=== PATIENT | female | born 1995 | race Caucasian/White ===

== ENCOUNTER 2017-07-31 15:29 | Emergency (ER) | payer OTHER, MEDICAID ==
[~2017-07-31] VITALS: Wt 61.6 kg
[2017-07-31] MEDS ORDERED: LIDOCAINE/MYLANTA 40 ML BTL PO STA (16:22)
[2017-07-31] MEDS ORDERED: SOD CHLORIDE 0.9% 1,000 ML IV STA (16:22)
[2017-07-31] MEDS ORDERED: FAMOTIDINE 20 MG INJ IV STA (16:22)
[2017-07-31] MEDS ORDERED: ONDANSETRON 4 MG INJ IV STA (16:22)
[2017-07-31 17:01] LABS: BASOPHIL # 0.1 10^3/ul (0.0-0.1); BASOPHILS % 0.8 % (0.0-2.0); EOSINOPHILS # 0.1 10^3/ul (0.0-0.5); EOSINOPHILS % 1.1 % (0.0-7.0); HEMATOCRIT 46.9 % (37.0-47.0); HEMOGLOBIN 15.2 g/dl (12.0-16.0); LYMPHOCYTES % 26.7 % (15.0-51.0); MEAN CORPUSCULAR HGB CONC 32.4 g/dl (32.0-37.0); MEAN CORPUSCULAR VOLUME 83.3 fl (82.0-101.0); MEAN PLATELET VOLUME 10.1 fl (7.4-10.4); MONOCYTE # 0.5 10^3/ul (0.3-0.9); MONOCYTES % 6.5 % (0.0-11.0); NEUTROPHIL # 4.8 10^3/ul (1.6-7.5); NEUTROPHILS % 64.6 % (39.0-77.0); PLATELET COUNT 256 10^3/UL (140-415); RED BLOOD COUNT 5.63 10^6/ul (4.20-5.40); RED CELL DISTRIBUTION WIDTH 12.9 % (11.5-14.5); WHITE BLOOD COUNT 7.4 10^3/ul (4.8-10.8)
--- NOTE | 2017-07-31 17:03 | ERD ---
ER Documentation Chief Complaint Chief Complaint abd pain, n/v, dizzy, swollen fingers HPI This is a 22-year-old female presenting to emergency department for epigastric abdominal pain, nausea, vomiting and dizziness 2 days. Patient states pain started yesterday and vomiting began earlier today. Patient had 2 episodes of emesis today. Patient states she saw traces of blood in emesis. Patient describes pain as constant and nonradiating. Patient did not take any medications for this. Patient denies fevers or chills. Patient's last menstrual period July 16, 2017. Patient's last bowel movement was 2 days ago patient states she feels constipated. ROS All systems reviewed and are negative except as per history of present illness. Medications Home Meds Active Scripts Polyethylene Glycol* (Miralax*) 17 Gm Powd.pack, 17 GM PO DAILY, #7 Prov:LILA LUA NP 07/31/17 Docusate Sodium* (Colace*) 100 Mg Capsule, 100 MG PO BID, #14 CAP Prov:LILA LUA NP 07/31/17 Ondansetron Hcl* (Zofran*) 4 Mg Tablet, 4 MG PO Q6H for NAUSEA AND/OR VOMITING, #10 TAB Prov:LILA LUA NP 07/31/17 Famotidine* (Pepcid*) 20 Mg Tablet, 20 MG PO BID for 4 Days, TAB Prov:LILA LUA NP 07/31/17 Allergies Allergies: Coded Allergies: No Known Allergy (Unverified , 07/31/17) PMhx/Soc Medical and Surgical Hx: pt denies Medical Hx, pt denies Surgical Hx Hx Alcohol Use: No Hx Substance Use: No Hx Tobacco Use: No Smoking Status: Never smoker Physical Exam Vitals Vital Signs Date Time Temp Pulse Resp B/P Pulse Ox O2 Delivery O2 Flow Rate FiO2 07/31/17 15:38 97.7 83 20 128/62 98 Physical Exam Const: No acute distress, alert Head: Atraumatic Eyes: Normal Conjunctiva ENT: Normal External Ears, Nose and Mouth. Neck: Full range of motion..~ No meningismus. Resp: Clear to auscultation bilaterally. No wheezing, rhonchi or crackles. Cardio: Regular rate and rhythm, no murmurs Abd: Soft, non tender, non distended. Normal bowel sounds. Negative Moser sign. No McBurney point tenderness. Skin: No petechiae or rashes Back: No midline or flank tenderness Ext: No cyanosis, or edema Neur: Awake and alert Psych: Normal Mood and Affect Result Diagram: 07/31/17 1643 07/31/17 1643 Results 24 hrs Laboratory Tests Test 07/31/17 16:43 White Blood Count 7.410^3/ul Red Blood Count 5.6310^6/ul Hemoglobin 15.2g/dl Hematocrit 46.9% Mean Corpuscular Volume 83.3fl Mean Corpuscular Hemoglobin 27.0pg Mean Corpuscular Hemoglobin Concent 32.4g/dl Red Cell Distribution Width 12.9% Platelet Count 61138^3/UL Mean Platelet Volume 10.1fl Neutrophils % 64.6% Lymphocytes % 26.7% Monocytes % 6.5% Eosinophils % 1.1% Basophils % 0.8% Nucleated Red Blood Cells % 0.0/100WBC Neutrophils # 4.810^3/ul Lymphocytes # 2.010^3/ul Monocytes # 0.510^3/ul Eosinophils # 0.110^3/ul Basophils # 0.110^3/ul Nucleated Red Blood Cells # 0.010^3/ul Urine Color YELLOW Urine Clarity TURBID Urine pH 8.0 Urine Specific [place] 1.023 Urine Ketones NEGATIVEmg/dL Urine Nitrite NEGATIVEmg/dL Urine Bilirubin NEGATIVEmg/dL Urine Urobilinogen 2+mg/dL Urine Leukocyte Esterase NEGATIVELeu/ul Urine Microscopic RBC 0/HPF Urine Microscopic WBC 5/HPF Urine Squamous Epithelial Cells FEW/HPF Urine Renal Epithelial Cells MODERATE/HPF Urine Bacteria FEW/HPF Urine Mucus FEW/HPF Urine Hemoglobin NEGATIVEmg/dL Urine Glucose NEGATIVEmg/dL Urine Total Protein NEGATIVEmg/dl Sodium Level 143mmol/L Potassium Level 4.2mmol/L Chloride Level 106mmol/L Carbon Dioxide Level 26mmol/L Anion Gap 15 Blood Urea Nitrogen 10mg/dl Creatinine 0.71mg/dl Glucose Level 85mg/dl Calcium Level 10.1mg/dl Total Bilirubin 1.1mg/dl Direct Bilirubin 0.00mg/dl Indirect Bilirubin 1.1mg/dl Aspartate Amino Transf (AST/SGOT) 30IU/L Alanine Aminotransferase (ALT/SGPT) 54IU/L Alkaline Phosphatase 65IU/L Total Protein 8.5g/dl Albumin 4.8g/dl Globulin 3.70g/dl Albumin/Globulin Ratio 1.29 Lipase 87U/L Current Medications Medications (Trade) Dose Ordered Sig/Alvin Route PRN Reason Start Time Stop Time Status Last Admin Dose Admin Sodium Chloride (NS) 1,000 ml @ 1,000 mls/hr Q1H STAT IV 07/31/17 16:22 07/31/17 17:21 DC 07/31/17 16:52 Ondansetron HCl (Zofran Inj) 4 mg ONCE STAT IV 07/31/17 16:22 07/31/17 16:26 DC 07/31/17 16:52 Famotidine (Pepcid Iv) 20 mg ONCE STAT IV 07/31/17 16:22 07/31/17 16:26 DC 07/31/17 16:52 Miscellaneous Medication (Gi Cocktail (2)) 40 ml ONCE STAT PO 07/31/17 16:22 07/31/17 16:26 DC 07/31/17 16:52 Procedures/MDM DIAGNOSTIC IMAGING REPORT Patient: MAYTE STANLEY : 1995 Age: 22 Sex: F MR #: [id number] DOS: 07/31/17 0000 Ordering MD: LILA STEELE NP Location: [facility] Room/Bed: PROCEDURE: XR Abdomen. CLINICAL INDICATION: Abdomen pain. TECHNIQUE: AP supine abdomen x-ray. COMPARISON: None. FINDINGS: The bowel gas pattern is normal. There is no evidence of obstruction. There are no abnormal calcifications overlying the urinary tracts. The osseus structures are unremarkable. There is an IUD in the pelvis. IMPRESSION: 1. IUD in the pelvis. 2. Otherwise unremarkable abdomen radiograph. Patient: MAYTE STANLEY : 1995 Age: 22 Sex: F MR #: [id number] DOS: 07/31/17 1622 Ordering MD: LILA STEELE NP Location: [facility] Room/Bed: PROCEDURE: US Abdomen (right upper quadrant). CLINICAL INDICATION: Right upper quadrant abdomen pain. TECHNIQUE: Multiple real-time longitudinal and transverse images of the right upper quadrant of the abdomen were acquired utilizing a curved array transducer. Images were reviewed on a high-resolution PACS workstation. COMPARISON: None FINDINGS: The liver is normal in size and normal in echogenicity. There is no focal hepatic lesion. Color Doppler and pulsed Doppler sonography demonstrate normal antegrade flow in the portal vein. The gallbladder is contracted but otherwise normal with no stones or wall thickening. There is no pericholecystic fluid collection. The bile ducts are normal with the common bile duct measuring 2.6 mm in diameter. The visualized portions of the pancreas are unremarkable with obscuration of the tail of the pancreas. No free fluid is present. The right kidney measures 10.3 x 4.2 x 4.2 cm. There is normal echogenicity of the right kidney. There is no perinephric fluid collection. No hydronephrosis, mass, or calculus is seen. IMPRESSION: 1. Contracted gallbladder. 2. Otherwise unremarkable right upper quadrant abdomen ultrasound. MDM: This is a 22-year-old female presenting to emerge department with epigastric abdominal pain, nausea, vomiting and dizziness 2 days. Patient's vital signs are stable. No fevers or chills. Patient is afebrile. IV access obtained and labs drawn. Patient given 1 L IV fluid bolus of normal saline. Patient given Pepcid and Zofran IV. Patient given GI cocktail p.o. CBC shows no significant anemia or infection. CMP shows no significant electrolyte imbalance. Lipase is normal. UA is negative for infection. Urine is negative. Ultrasound gallbladder reviewed by radiologist as Contracted gallbladder otherwise unremarkable right upper quadrant abdominal ultrasound. KUB reviewed by radiologist as unremarkable. Upon reassessment, patient states pain and nausea have resolved. Differential diagnosis includes but not limited to acute LA, pancreatitis, peptic ulcer disease, GERD, gastritis, cholecystitis, cholelithiasis, choledocholithiasis and gastroparesis and functional dyspepsia. I doubt acute LA due to patient's normal vital signs, patient denies chest pain , shortness of breath, difficulty breathing or heart palpitations. I doubt pancreatitis due to patient's normal lab results. Patient is appropriate for outpatient management and instructed to follow-up with primary care provider in the next 2-3 days for reassessment. Patient given prescription for pepcid, zofran, colace and Miralax. Instructed patient to return to the ED in 8 hours for abdominal pain recheck. Return to ED for any high fever, chest pain, difficulty breathing, shortness breath, wheezing, vomiting, diarrhea, abdominal pain or any new or worsening symptoms. Patient verbalizes understanding. All questions answered at discharge. Disclaimer: Inadvertent spelling and grammatical errors are likely due to EHR/ dictation software use and do not reflect on the overall quality of patient care. Also, please note that the electronic time recorded on this note does not necessarily reflect the actual time of the patient encounter. Departure Diagnosis: Primary Impression: Abdominal pain Abdominal location: epigastric Qualified Code: R10.13 - Epigastric pain Condition: Stable LILA LUA NP Jul 31, 2017 17:03
[2017-07-31 17:07] LABS: ADD UMIC YES; UR ASCORBIC ACID 20 mg/dL (NEGATIVE); UR BACTERIA FEW /HPF (NONE SEEN); UR BILIRUBIN (Dip) NEGATIVE (NEGATIVE); UR BLOOD (Dip) NEGATIVE (NEGATIVE); UR CLARITY TURBID (CLEAR); UR COLOR YELLOW (YELLOW); UR GLUCOSE (Dip) NEGATIVE (NEGATIVE); UR KETONES (Dip) NEGATIVE (NEGATIVE); UR LEUKOCYTE ESTERASE (Dip) NEGATIVE Leu/ul (NEGATIVE); UR MUCUS FEW /HPF (NONE SEEN); UR NITRITE (Dip) NEGATIVE (NEGATIVE); UR RBC 0 /HPF (0-5); UR RENAL EPITHELIAL CELL MODERATE /HPF (NONE SEEN); UR SPECIFIC GRAVITY (Dip) 1.023 (1.003-1.030); UR SQUAMOUS EPITHELIAL CELL FEW /HPF (FEW); UR TOTAL PROTEIN (Dip) NEGATIVE (NEGATIVE); UR UROBILINOGEN (Dip) 2+ mg/dL (NEGATIVE)
[2017-07-31 17:20] LABS: ALBUMIN 4.8 g/dl (3.3-4.9); ALBUMIN/GLOBULIN RATIO 1.29; BILIRUBIN,INDIRECT 1.1 mg/dl (0-1.1); BILIRUBIN,TOTAL 1.1 mg/dl (0.2-1.3); CALCIUM 10.1 mg/dl (8.4-10.2); CREATININE 0.71 mg/dl (0.44-1.00); POTASSIUM 4.2 mmol/L (3.5-5.1); TOTAL PROTEIN 8.5 g/dl (6.1-8.1)
--- NOTE | 2017-07-31 17:36 | RADRPT ---
PROCEDURE: XR Abdomen. CLINICAL INDICATION: Abdomen pain. TECHNIQUE: AP supine abdomen x-ray. COMPARISON: None. FINDINGS: The bowel gas pattern is normal. There is no evidence of obstruction. There are no abnormal calcifications overlying the urinary tracts. The osseus structures are unremarkable. There is an IUD in the pelvis. IMPRESSION: 1. IUD in the pelvis. 2. Otherwise unremarkable abdomen radiograph. RPTAT: QQ .Micha Collazo MD, MD Date Time Electronically viewed and signed by .Micha Collazo MD, MD on 07/31/2017 17:36 .R/
--- NOTE | 2017-07-31 17:36 | RADRPT ---
PROCEDURE: US Abdomen (right upper quadrant). CLINICAL INDICATION: Right upper quadrant abdomen pain. TECHNIQUE: Multiple real-time longitudinal and transverse images of the right upper quadrant of th e abdomen were acquired utilizing a curved array transducer. Images were reviewed on a high-resoluti on PACS workstation. COMPARISON: None FINDINGS: The liver is normal in size and normal in echogenicity. There is no focal hepatic lesion. Color Doppler and pulsed Doppler sonography demonstrate normal a ntegrade flow in the portal vein. The gallbladder is contracted but otherwise normal with no stones or wall thickening. There is no p ericholecystic fluid collection. The bile ducts are normal with the common bile duct measuring 2.6 mm in diameter. The visualized portions of the pancreas are unremarkable with obscuration of the tail of the pancrea s. No free fluid is present. The right kidney measures 10.3 x 4.2 x 4.2 cm. There is normal echogenicity of the right kidney. There is no perinephric fluid collection. No hydronephrosis, mass, or calculus is seen. IMPRESSION: 1. Contracted gallbladder. 2. Otherwise unremarkable right upper quadrant abdomen ultrasound. RPTAT: QQ .Micha Collazo MD, MD Date Time Electronically viewed and signed by .Micha Collazo MD, MD on 07/31/2017 17:35 .R/
[2017-07-31] MEDS ORDERED: FAMO-96 PO (18:00)
[2017-07-31] MEDS ORDERED: ONDA4TAB8 PO (18:00)
[2017-07-31] MEDS ORDERED: DOCU-144 PO (18:00)
[2017-07-31] MEDS ORDERED: POLY17PO6 PO (18:00)
== END 2017-07-31 18:44 | disposition home or self-care (01) ==
LOC: FTE 15:29
DX: R10.13 Epigastric pain (principal)
CPT/HCPCS: 36415; 74000; 76705; 80053; 81001; 83690; 85025; 96374; 96375; 99285; J2405; J7030

== ENCOUNTER 2017-10-18 16:08 | Emergency (ER) | END 2017-10-18 19:50 | disposition left against medical advice (07) ==

== ENCOUNTER 2018-11-27 12:05 | Emergency (ER) | payer SELFPAY ==
[~2018-11-27] VITALS: Wt 70.1 kg
[~2018-11-27 12:05] MED LIST: DOCU-144 PO; FAMO-96 PO; ONDA4TAB8 PO; POLY17PO6 PO
[2018-11-27] MEDS ORDERED: ACETAMINOPHEN 500 MG TAB PO STA (14:20)
[2018-11-27] MEDS ORDERED: FAMOTIDINE 20 MG TAB PO ONE (14:30)
[2018-11-27] MEDS ORDERED: LIDOCAINE/MYLANTA 40 ML BTL PO ONE (14:30)
[2018-11-27] MEDS ORDERED: PANT40TA3 PO (15:53)
[2018-11-27] MEDS ORDERED: ACET500C5 PO (15:53)
--- NOTE | 2018-11-27 15:55 | ERD ---
ER Documentation Chief Complaint Chief Complaint UPPER ABD PAIN X 4 DAYS HPI 23-year-old female presents with epigastric pain for last 4 days. Describes as sharp and burning without relation to food. She denies any localized right upper, right lower or lower abdominal pain. Denies urinary complaints, fevers, vomiting. She has decreased appetite only as she is worried eating will make the pain worse. She denies any cough, shortness of breath or chest pain. ROS All systems reviewed and are negative except as per history of present illness. Medications Home Meds Active Scripts Acetaminophen* (Tylophen*) 500 Mg Capsule, 1 CAP PO Q6H PRN for PAIN AND OR ELEVATED TEMP, #15 CAP Prov:LACHO REIS MD 11/27/18 Pantoprazole* (Protonix*) 40 Mg Tablet.dr, 40 MG PO DAILY, #14 TAB Prov:LACHO REIS MD 11/27/18 Polyethylene Glycol* (Miralax*) 17 Gm Powd.pack, 17 GM PO DAILY, #7 Prov:LILA LUA NP 07/31/17 Docusate Sodium* (Colace*) 100 Mg Capsule, 100 MG PO BID, #14 CAP Prov:LILA LUA NP 07/31/17 Ondansetron Hcl* (Zofran*) 4 Mg Tablet, 4 MG PO Q6H for NAUSEA AND/OR VOMITING, #10 TAB Prov:LILA LUA NP 07/31/17 Famotidine* (Pepcid*) 20 Mg Tablet, 20 MG PO BID for 4 Days, TAB Prov:LILA LUA NP 07/31/17 Allergies Allergies: Coded Allergies: morphine (Verified Allergy, Unknown, 10/18/17) PMhx/Soc History of Surgery: Yes (Appy) Anesthesia Reaction: No Hx Neurological Disorder: No Hx Respiratory Disorders: No Hx Cardiac Disorders: No Hx Psychiatric Problems: No Hx Miscellaneous Medical Probl: Yes (IBS) Hx Alcohol Use: No Hx Substance Use: No Hx Tobacco Use: No Smoking Status: Never smoker FmHx Family History: No diabetes, No coronary disease, No other Physical Exam Vitals Vital Signs Date Temp Pulse Resp B/P (MAP) Pulse Ox O2 O2 Flow FiO2 Time Delivery Rate 11/27/18 98.6 78 18 130/58 99 12:09 (82) Physical Exam Const: No acute distress Head: Atraumatic Eyes: Normal Conjunctiva ENT: Normal External Ears, Nose and Mouth. Neck: Full range of motion. No meningismus. Resp: Clear to auscultation bilaterally Cardio: Regular rate and rhythm, no murmurs Abd: Soft, minimal epigastric tenderness. No exquisite Moser sign and no tenderness at McBurney's point. Non distended. Normal bowel sounds Skin: No petechiae or rashes Back: No midline or flank tenderness Ext: No cyanosis, or edema Neur: Awake and alert Psych: Normal Mood and Affect Result Diagram: 11/27/18 1438 11/27/18 1438 Results 24 hrs Laboratory Tests Test 11/27/18 14:38 11/27/18 14:52 White Blood Count 8.5 10^3/ul Red Blood Count 5.35 10^6/ul Hemoglobin 14.6 g/dl Hematocrit 44.2 % Mean Corpuscular Volume 82.6 fl Mean Corpuscular Hemoglobin 27.3 pg Mean Corpuscular Hemoglobin Concent 33.0 g/dl Red Cell Distribution Width 12.5 % Platelet Count 274 10^3/UL Mean Platelet Volume 9.6 fl Immature Granulocytes % 0.500 % Neutrophils % 68.9 % Lymphocytes % 25.0 % Monocytes % 4.6 % Eosinophils % 0.5 % Basophils % 0.5 % Nucleated Red Blood Cells % 0.0 /100WBC Immature Granulocytes # 0.040 10^3/ul Neutrophils # 5.8 10^3/ul Lymphocytes # 2.1 10^3/ul Monocytes # 0.4 10^3/ul Eosinophils # 0.0 10^3/ul Basophils # 0.0 10^3/ul Nucleated Red Blood Cells # 0.0 10^3/ul Urine Color NAIDA Urine Clarity CLEAR Urine pH 6 Urine Specific [place] 1.035 Urine Ketones 1+ mg/dL Urine Nitrite NEGATIVE mg/dL Urine Bilirubin NEGATIVE mg/dL Urine Urobilinogen 1+ mg/dL Urine Leukocyte Esterase 1+ Luanne/ul Urine Hemoglobin 1+ mg/dL Urine Glucose NEGATIVE mg/dL Urine Total Protein 1+ mg/dl Sodium Level 143 mmol/L Potassium Level 4.0 mmol/L Chloride Level 104 mmol/L Carbon Dioxide Level 25 mmol/L Anion Gap 14 Blood Urea Nitrogen 9 mg/dl Creatinine 0.65 mg/dl Est Glomerular Filtrat Rate mL/min > 60 mL/min Glucose Level 84 mg/dl Calcium Level 10.2 mg/dl Total Bilirubin 1.2 mg/dl Direct Bilirubin 0.00 mg/dl Indirect Bilirubin 1.2 mg/dl Aspartate Amino Transf (AST/SGOT) 33 IU/L Alanine Aminotransferase (ALT/SGPT) 39 IU/L Alkaline Phosphatase 61 IU/L Total Protein 8.8 g/dl Albumin 5.2 g/dl Globulin 3.60 g/dl Albumin/Globulin Ratio 1.44 Lipase 56 U/L POC Beta HCG, Qualitative NEGATIVE Current Medications Medications Dose Sig/Alvin Start Time Status Last (Trade) Ordered Route PRN Stop Time Admin Dose Reason Admin 40 ml ONCE ONCE 11/27/18 DC 11/27/18 Miscellaneous PO 14:30 11/27/18 14:42 Medication 14:31 (Gi Cocktail (2)) Famotidine 20 mg ONCE ONCE 11/27/18 DC 11/27/18 (Pepcid) PO 14:30 11/27/18 14:43 14:31 500 mg ONCE STAT 11/27/18 DC 11/27/18 Acetaminophen PO 14:20 11/27/18 14:42 (Tylenol 14:22 Tab) Procedures/MDM Right upper quadrant ultrasound read as normal. CBC, CMP, lipase shows no acute abnormalities. HCG negative. Shows 1+ leukocytes and hemoglobin. Patient given GI cocktail, Pepcid and Tylenol had a reassuring abdominal exam on serial exam. She did patient presents with epigastric pain for last 3 days. She has likely gastritis. We will defer treatment for UTI given patient has no urinary complaints and symptoms do not correlate with UTI. It may be dirty catch. Current signs or symptoms do not suggest surgical abdomen, appendicitis, sepsis, the patient has no claims of chest pain, additional concerning symptoms. Will treat with Protonix, Tylenol, primary care follow-up and return precautions. She is advised to return the next day for lower abdominal pain, worsening symptoms despite treatment, additional new or worsening symptoms. The patient was stable with no new complaints during the ER course. Clinically, there is no current evidence to suggest meningitis, sepsis, acute abdomen, pneumonia, stroke, acute coronary syndrome, pulmonary embolism, aortic dissection or any other emergent condition appearing to require further evaluation or hospitalization. Patient counseled regarding my diagnostic impression and care plan. Prior to discharge all questions answered. Pt agrees with treatment plan and understands strict return precautions. Pt is instructed to follow up with primary care provider within 24-48 hours. Precautionary instructions provided including instructions to return to the ER if not improving or for any worsening or changing symptoms or concerns. Departure Diagnosis: Primary Impression: Abdominal pain Abdominal location: epigastric Qualified Codes: R10.13 - Epigastric pain Condition: Stable Patient Instructions: Abdominal Pain, Gastritis (Adult) Referrals: DOCTOR,NOT ON STAFF (PCP) Additional Instructions: All examinations normal today. Likely gastritis. Recheck in the next day for fevers, lower abdominal pain, new or worsening symptoms with primary care doctor this week. LACHO REIS MD Nov 27, 2018 15:55
[2018-11-27 16:23] VITALS: BP 119/63; PULSE 78
== END 2018-11-27 16:26 | disposition home or self-care (01) ==
LOC: FTE 12:05
DX: R10.13 Epigastric pain (principal)
CPT/HCPCS: 36415; 76705; 80053; 81001; 81025; 83690; 85025